=== PATIENT | female | born 1950 | race Caucasian/White ===

== ENCOUNTER 2017-11-04 10:23 | Emergency (ER) | payer OTHER ==
[~2017-11-04] VITALS: Ht 167.6 cm; Wt 74.8 kg
--- NOTE | 2017-11-04 11:10 | ED GI/GU/ABDOMINAL COMPLAINT ---
History of Present Illness General Chief Complaint: Abdominal Pain/Flank Pain Stated Complaint: ABD Source: patient Exam Limitations: no limitations Vital Signs & Intake/Output Vital Signs & Intake/Output Vital Signs Date Time Temp Pulse Resp B/P B/P Pulse O2 O2 Flow FiO2 Mean Ox Delivery Rate 11/04 1427 Room Air 11/04 1349 97.5 70 18 140/77 97 11/04 1028 97.0 81 18 147/75 95 Room Air Allergies Coded Allergies: MDX - SULFA (sulfonamide) (SULFA (SULFONAMIDE)) (Severe, RASH/HIVES 04/04/13) MDX - Sulindac (From [place]) (Severe, MULTIORGAN FAILURE 04/04/13) Reconcile Medications Polycarbophil (Replens) 6.7 GM GEL.PF.[email or web address] 1 UNIT VAG 2XW PRN VAGINAL IRRITATION Triage Note: 67 YO FEMALE TO TRIAGE C/O PAIN/IRRITATION TO VAGINA. STATES WAS GIVEN A CREAM BY HER CANDY FEEDER WITHOUT RELIEF, STATES THEY CHECKED HER FOR BACTERIA INFECTION AND UTI WITH WAS NEGATIVE. ALSO C/O LOWER ABD PAIN, WORSE ON THE LEFT SIDE. DENIES NV, DENIES URIANARY S/S. Triage Nurses Notes Reviewed? yes ? N Is pt currently ? No Onset: Gradual Duration: week(s): Timing: recent history Quality/Severity: moderate Location: generalized abdomen, vaginal Sexually Active: No HPI: 67-year-old female with history of ileostomy presents to emergency department complaining of vaginal irritation 1 months. Patient also complaining of generalized abdominal pain intermittently 1 month. Patient states that she saw her OPERATIONS DIRECTOR and had swabs sent to the lab which were normal. She was prescribed Clotrimazole cream which she states helped slightly however her symptoms returned. Patient informed her OPERATIONS DIRECTOR who prescribed the same cream. Despite these medications patient symptoms have persisted. Patient reports maintaining regular diet. She denies nausea, vomiting, fevers, chills, vaginal spotting, changes in vaginal discharge, dysuria, hematuria, urinary frequency. The patient is not sexually active. (Dorothy LEVINE,Anamaria Munoz) Past History Travel History Traveled to [place] past 21 day No Medical History Any Pertinent Medical History? see below for history Neurological: NONE EENT: NONE Cardiovascular: NONE Respiratory: NONE Gastrointestinal: SBO Hepatic: NONE Renal: NONE Musculoskeletal: NONE Psychiatric: NONE Endocrine: NONE Blood Disorders: NONE Cancer(s): NONE CANDY FEEDER/Reproductive: NONE History of MRSA: No History of VRE: No History of CDIFF: No Surgical History Surgical History: ileostomy Psychosocial History Who do you live with Patient/Self What is your primary language Turkmen Tobacco Use: Never used Family History Hx Contributory? No (Anamaria Eckert) Review of Systems Review of Systems Constitutional: Reports: no symptoms. EENTM: Reports: no symptoms. Respiratory: Reports: no symptoms. Cardiovascular: Reports: no symptoms. GI: Reports: see HPI. Genitourinary: Reports: see HPI. Musculoskeletal: Reports: no symptoms. Skin: Reports: no symptoms. Neurological/Psychological: Reports: no symptoms. Hematologic/Endocrine: Reports: no symptoms. Immunologic/Allergic: Reports: no symptoms. All Other Systems: Reviewed and Negative (Anamaria Eckert) Physical Exam Physical Exam General Appearance: well developed/nourished, no apparent distress, alert, awake Head: atraumatic, normal appearance Eyes: Bilateral: normal appearance. Ears, Nose, Throat, Mouth: hearing grossly normal Neck: normal inspection, supple, full range of motion Respiratory: normal breath sounds, no respiratory distress, lungs clear Cardiovascular: regular rate/rhythm Gastrointestinal: normal bowel sounds, soft, +ileostomy bag present, LLQ and RLQ tenderness with gaurding, -Rosving's sign Pelvic: external exam WNL, slight erythema of vaginal mucosa, no abnormal discharge Back: normal inspection, normal range of motion Extremities: normal range of motion Neurologic/Psych: awake, alert, oriented x 3 Skin: intact, normal color, warm/dry Core Measures ACS in differential dx? No Sepsis Present: No Sepsis Focused Exam Completed? No (Anamaria Ecketr) Progress Differential Diagnosis: appendicitis, bowel obstruction, cholecystitis, diverticulitis, gastritis, hepatitis, hernia, inflamm bowel dis, ovarian cyst, ovarian torsion, pancreatitis, PID/cervicitis, PUD/GERD, perforated viscous, SBO , UTI/pyelo, vaginitis, vaginal atrophy, candidiasis Plan of Care: Orders Procedure Date/time Status URINALYSIS 11/04 1121 Complete LIPASE 11/04 1121 Complete LACTIC ACID 11/04 1121 Complete COMPREHENSIVE METABOLIC PANEL 11/04 1121 Complete CBC WITHOUT DIFFERENTIAL 11/04 1121 Complete Laboratory Tests 11/04/17 1421: Lactic Acid Cancelled 11/04/17 1150: Anion Gap 18 H, Estimated GFR > 60, BUN/Creatinine Ratio 20.0, Glucose 97, Lactic Acid 1.4, Calcium 10.3 H, Total Bilirubin 0.6, AST 35, ALT 40, Alkaline Phosphatase 118, Total Protein 8.1, Albumin 5.0, Globulin 3.1, Albumin/Globulin Ratio 1.6, Lipase 154, CBC w Diff NO MAN DIFF REQ, RBC 4.68, MCV 94.3, MCH 31.5 H, MCHC 33.4, RDW 13.6, MPV 9.1, Gran % 55.0, Lymphocytes % 29.9, Monocytes % 10.5 H, Eosinophils % 3.5, Basophils % 1.1, Absolute Granulocytes 4.0, Absolute Lymphocytes 2.2, Absolute Monocytes 0.8 H, Absolute Eosinophils 0.2, Absolute Basophils 0.1, Urine Color YEL, Urine Clarity CLEAR, Urine pH 6.5, Ur Specific [place] 1.015, Urine Protein NEG, Urine Ketones NEG, Urine Nitrite NEG, Urine Bilirubin NEG, Urine Urobilinogen 0.2, Ur Leukocyte Esterase NEG, Ur Microscopic EXAM NOT REQUIRED, Urine Hemoglobin NEG, Urine Glucose NEG Vaginal atrophy is likely based on physical exam. No swabs sent given patient's history of recent swabs within the past month. Patient's urine without yeast or infection. CT scan without acute abnormality. Incidental renal cyst detected, not likely relating to patient's generalized abdominal pain. All findings discussed with the patient. She was prescribed OTC lubricant to aid in irritation of the vaginal mucosa. Patient instructed to follow-up with urologist regarding renal cyst if she chooses. There is also recommended she follow up with GI health patient states she will go through her PCP for GI referral. The patient agrees with the plan of care. She is sitting on stretcher comfortably, no acute distress, vital signs are stable, she is nontoxic-appearing. She was discussed with Dr. Zarco who agrees with the plan of care. Diagnostic Imaging: Viewed by Me: CT Scan. Discussed w/RAD: CT Scan. Radiology Impression: PATIENT: BERENICE CHAMPION PRESENT AGE: 67 PATIENT ACCOUNT NO: [id number] : 48 LOCATION: [facility] ORDERING PHYSICIAN: Anamaria LEVINE SERVICE DATE: 11/04/17 EXAM TYPE: CAT - CT ABD & PELVIS W IV CONTRAST EXAMINATION: CT ABDOMEN AND PELVIS WITH CONTRAST CLINICAL INFORMATION: Left-sided abdominal pain and vaginal irritation. COMPARISON: CT abdomen and pelvis report March 2010. Images not available for comparison. TECHNIQUE: Multidetector volumetric imaging was performed of the abdomen and pelvis following IV administration of 95 mL of Optiray 320 intravenous contrast. Sagittal and coronal reformatted images were obtained on the technologist's workstation. DLP: 352 mGy-cm FINDINGS: LUNG BASES : The visualized lung bases are unremarkable. LIVER, GALLBLADDER, AND BILIARY TREE: The liver is normal in size, shape, and attenuation. No focal hepatic lesion or biliary ductal dilatation is present. The gallbladder is unremarkable with no evidence of radiopaque gallstones, gallbladder wall thickening, or obvious pericholecystic inflammatory changes. PANCREAS: There is fatty infiltration of the pancreas. The pancreas is otherwise unremarkable. SPLEEN: The spleen is absent. ADRENAL GLANDS: Unremarkable. KIDNEYS AND URETERS: There is a 1.9 x 2.4 cm cyst in the upper pole of the left kidney. The kidneys are otherwise unremarkable. BLADDER: Unremarkable. 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 There are surgical clips in the pelvis adjacent to the rectum. No evidence of obstruction is seen. ABDOMINAL WALL: No significant hernia is appreciated. LYMPH NODES: There are no enlarged lymph nodes. There is no ascites. VASCULAR: The abdominal aorta is normal in caliber. PELVIC VISCERA: The uterus appears to have been removed. No pelvic mass is seen. OSSEOUS STRUCTURES: There is a sclerotic lesion in the right iliac bone. This is described in previous CT report from 2009. There are degenerative changes of the spine and hip joints. IMPRESSION: Postsurgical changes from total colectomy. No evidence of obstruction or mass. Left renal cyst. Fatty infiltration of the pancreas. Absent spleen. DICTATED BY: Noy Shen MD DATE/TIME DICTATED:11/04/171317 SENIOR BUSINESS MANAGER:LYUDMILA DATE/TIME TRANSCRIBED:11/04/171317 CONFIDENTIAL, DO NOT COPY WITHOUT APPROPRIATE AUTHORIZATION. <Electronically signed in Other Vendor System> SIGNED BY: Noy Shen MD 11/04/17 7620 Initial ED EKG: none (Dorothy LEVINE,Anamaria Munoz) Departure Departure Disposition: HOME OR SELF CARE Condition: Stable Clinical Impression Primary Impression: Vaginal atrophy Secondary Impressions: Abdominal pain Qualifiers: Abdominal location: generalized Qualified Code: R10.84 - Generalized abdominal pain Referrals: Ben DONOVAN,Norma Chavez MD,Michael Mahan III (PCP/Family) Additional Instructions: Begin Replens cream one or twice weekly. Follow-up with your OPERATIONS DIRECTOR regarding this new medication. If this medication does not work consult your OPERATIONS DIRECTOR about possible Estrace cream. You were given a urology referral to follow-up with regarding your urinary symptoms and your renal cyst. If you has any worsening symptoms please return to the emergency department. Please note that there might be incidental findings in your evaluation that are unrelated to the current emergency department visit. Please notify your primary care doctor about this emergency department visit in order to obtain and review all of the testing performed so that these incidental findings can be monitored as needed. If you had an x-ray performed, please understand that some fractures may not be seen on the initial set of x-rays. If your symptoms persist you might need a repeat set of x-rays to check for such a fracture. If you had a laceration evaluated, please understand that foreign bodies such as glass or wood may not be visible to the naked eye or on plain x-rays. If the wound becomes red, swollen, increasingly more painful or if there is any drainage from the wound, please have it reevaluated by a physician for the possibility of a retained foreign body. If you're unable to follow up as outlined in the discharge instructions please return to the emergency department. Thank you for choosing the [facility] Emergency Department for your care. It was a pleasure to serve you today. Departure Forms: Customer Survey General Discharge Information Prescriptions: Current Visit Scripts Polycarbophil (Replens) 1 UNIT VAG 2XW PRN VAGINAL IRRITATION #1 BOX (Dorothy LEVINE,Anamaria Munoz) PA/ICE CREAM MACHINE OPERATOR Co-Sign Statement Statement: ED Attending supervision documentation- x I saw and evaluated the patient. I have also reviewed all the pertinent lab results and diagnostic results. I agree with the findings and the plan of care as documented in the PA's/ICE CREAM MACHINE OPERATOR's documentation. [] I have reviewed the ED Record and agree with the PA's/ICE CREAM MACHINE OPERATOR's documentation. [] Additions or exceptions (if any) to the PAs/ICE CREAM MACHINE OPERATOR's note and plan are summarized below: [] (Carolee DONOVAN,Ameya)
[2017-11-04 12:14] LABS: ABSOLUTE BASOPHIL COUNT 0.1 /CUMM (0.0-0.2); ABSOLUTE EOSINOPHIL COUNT 0.2 /CUMM (0.0-0.7); ABSOLUTE LYMPH COUNT 2.2 /CUMM (1.2-3.4); ABSOLUTE MONOCYTE COUNT 0.8 /CUMM (0.10-0.60); BASOPHIL % 1.1 % (0.0-2.0); EOSINOPHIL % 3.5 % (0-5); HEMATOCRIT 44.1 % (37-47); MEAN CORPUSCULAR HGB 31.5 PG (27.0-31.0); MEAN CORPUSCULAR HGB CONC 33.4 G/DL (33.0-37.0); MEAN CORPUSCULAR VOLUME 94.3 FL (81.0-99.0); MEAN PLATELET VOLUME 9.1 FL (7.4-10.4); PLATELET COUNT 361 /CUMM (130-400); RBC DISTRIBUTION WIDTH 13.6 % (11.5-14.5); RED BLOOD CELL CT 4.68 /CUMM (4.20-5.40); WHITE BLOOD CELL COUNT 7.2 /CUMM (4.8-10.8)
[2017-11-04 13:49] VITALS: BP 140/77
--- NOTE | 2017-11-04 14:06 | CT SCAN REPORT ---
EXAMINATION: CT ABDOMEN AND PELVIS WITH CONTRAST CLINICAL INFORMATION: Left-sided abdominal pain and vaginal irritation. COMPARISON: CT abdomen and pelvis report March 2010. Images not available for comparison. TECHNIQUE: Multidetector volumetric imaging was performed of the abdomen and pelvis following IV administration of 95 mL of Optiray 320 intravenous contrast. Sagittal and coronal reformatted images were obtained on the technologist's workstation. DLP: 352 mGy-cm FINDINGS: LUNG BASES: The visualized lung bases are unremarkable. LIVER, GALLBLADDER, AND BILIARY TREE: The liver is normal in size, shape, and attenuation. No focal hepatic lesion or biliary ductal dilatation is present. The gallbladder is unremarkable with no evidence of radiopaque gallstones, gallbladder wall thickening, or obvious pericholecystic inflammatory changes. PANCREAS: There is fatty infiltration of the pancreas. The pancreas is otherwise unremarkable. SPLEEN: The spleen is absent. ADRENAL GLANDS: Unremarkable. KIDNEYS AND URETERS: There is a 1.9 x 2.4 cm cyst in the upper pole of the left kidney. The kidneys are otherwise unremarkable. BLADDER: Unremarkable. 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 There are surgical clips in the pelvis adjacent to the rectum. No evidence of obstruction is seen. ABDOMINAL WALL: No significant hernia is appreciated. LYMPH NODES: There are no enlarged lymph nodes. There is no ascites. VASCULAR: The abdominal aorta is normal in caliber. PELVIC VISCERA: The uterus appears to have been removed. No pelvic mass is seen. OSSEOUS STRUCTURES: There is a sclerotic lesion in the right iliac bone. This is described in previous CT report from 2010. There are degenerative changes of the spine and hip joints. IMPRESSION: Postsurgical changes from total colectomy. No evidence of obstruction or mass. Left renal cyst. Fatty infiltration of the pancreas. Absent spleen.
[2017-11-04] MEDS ORDERED: REPLENS6.7 GM VAG (14:38)
== END 2017-11-04 14:44 ==
LOC: ERH 10:23
PROVIDERS: Physician Assistant
DX: N95.2 Postmenopausal atrophic vaginitis (principal); R10.31 Right lower quadrant pain; R10.32 Left lower quadrant pain
CPT/HCPCS: 74177; 81003